=== PATIENT | male | born 1930 | race Caucasian/White ===

== ENCOUNTER → 2016-12-27 13:58 | Outpatient (CLI) | payer MEDICARE, OTHER | END | disposition home or self-care (01) | LOC: D.MRI 13:58 | DX: M54.12 Radiculopathy, cervical region (principal) ==

== ENCOUNTER → 2020-02-24 12:58 | Outpatient (CLI) | payer MEDICARE, OTHER | END | disposition home or self-care (01) | LOC: D.MRI 02-23 11:30 | PROVIDERS: ATTEND Family Medicine | DX: G45.9 Transient cerebral ischemic attack, unspecified (principal) ==